=== PATIENT | female | born 2000 | race Caucasian/White ===

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

== ENCOUNTER 2019-01-22 19:12 | Emergency (ER) | payer BC ==
[2019-01-22] MEDS ORDERED: 0.9 % SODIUM CHLORIDE 1,000 ML BAG IV ONE (19:13)
[2019-01-22] MEDS ORDERED: ACETAMINOPHEN 1,000 MG/100 ML BTL IVPB ONE (19:14)
--- NOTE | 2019-01-22 19:19 | Emergency Department Record ---
History of Present Illness - General Chief complaint: OB/Uterine Contract/ Stated complaint: CONTRACTIONS EVERY 2 MINUTES Time Seen by Provider: 01/22/19 19:13 Source: Patient Mode of Arrival: Ambulatory Limitations: No limitations - History of Present Illness Initial comments: 18 yo female presents with abdominal pain. She is 35 weeks . This is her third . Her other pregnancies went to term. She had pain after sex last night. She developed pain every two minutes this evening. She is feeling the baby move. No gush of fluids. No fluids leaking. No urge to push. She had slight bloody mucous last night after sex. Her OB is Dr Mirate. WASSERMAN Complaint: Abdominal pain, "Contractions" -: Hour(s) Location: Abdomen Radiation: Other Severity: Severe Quality: Aching Consistency: Intermittent Improves with: None Worsens with: None Associated symptoms: Denies other symptoms Vaginal bleeding: Light, Other No complications No complications - Related Data Allergies Allergy/AdvReac Type Severity Reaction Status Date / Time No Known Drug Allergies Allergy Verified 08/11/18 08:11 Review of Systems Constitutional: Denies: Chills, Fever, Malaise, Weakness Eyes: Denies: Eye discharge ENT: Denies: Congestion, Throat pain Respiratory: Denies: Cough Cardiovascular: Denies: Chest pain, Palpitations, Syncope Endocrine: Denies: Fatigue Gastrointestinal: Denies: Abdominal pain, Diarrhea, Nausea, Vomiting Genitourinary: Reports: Abnormal menses Musculoskeletal: Denies: Arthralgia, Back pain, Myalgia Skin: Denies: Bruising, Change in color, Rash Neurological: Denies: Headache Psychiatric: Denies: Anxiety Hematological/Lymphatic: Denies: Easy bleeding, Easy bruising Past Medical History - SOCIAL HISTORY Smoking Status: Never smoker Drug Use: None - RESPIRATORY Hx Respiratory Disorders: No - CARDIOVASCULAR Hx Cardio Disorders: No - NEURO Hx Neuro Disorders: No - GI Hx GI Disorders: No - Hx Genitourinary Disorders: No - ENDOCRINE Hx Endocrine Disorders: No - MUSCULOSKELETAL Hx Musculoskeletal Disorders: No - PSYCH Hx Psych Problems: Yes Hx Anxiety: Yes Hx Depression: Yes - HEMATOLOGY/ONCOLOGY Hx Hematology/Oncology Disorders: No Family Medical History Hx Cancer: Grandparents Hx HTN: Brother/Sister Physical Exam - General General Appearance: Alert, Oriented x3, Cooperative, No acute distress Limitations: No limitations - Head Head exam: Atraumatic, Normal inspection - Eye Eye exam: Normal appearance - ENT ENT exam: Normal exam Ear exam: Normal external inspection Nasal Exam: Normal inspection Mouth exam: Normal external inspection - Neck Neck exam: Normal inspection - Respiratory Respiratory exam: Normal lung sounds bilaterally. negative: Respiratory distress - Cardiovascular Cardiovascular Exam: Tachycardia - GI/Abdominal GI/Abdominal exam: Soft, Other (Graivd, non tender) - exam: Other (Sterile exam about 6cm dilated) - Extremities Extremities exam: Normal inspection - Back Back exam: Reports: Normal inspection - Neurological Neurological exam: Alert, Oriented X3 - Psychiatric Psychiatric exam: Normal affect, Normal mood - Skin Skin exam: Dry, Intact, Normal color, Warm Course - Reevaluation(s) Reevaluation #1: FHT 136 Sterile cervix check. 6cm dilation. No blood. The mother is feeling the baby move I SW Dr Heck of OB Labor and delivery with Dr Jaime. Stat transfer Given she has not ruptured and about 6cm the OB recommends transfer with time prior to delivery. 01/22/19 19:20 01/22/19 19:20 STAT transfer requested with EMS Local EMS is on run and will return [facility] 01/22/19 19:26 01/22/19 19:31 No urge to push. The contractions timing seems not consistent with true labor but this is possible EMS arrived. No loss of fluids or urge to push at transfer Medical Decision Making - Lab Data Result diagrams: 01/22/19 19:13 01/22/19 19:13 Disposition Disposition: Transfer Clinical Impression: Abdominal pain Qualifiers: Weeks of gestation: 35 weeks Qualified Code(s): Z3A.35 - 35 weeks gestation of Disposition: Acute Care Hospital Transfer [place] [facility] [place] Reason For Transfer: 35 weeks abdominal pain Accepting Physician: Addison Time Discussed w/Accepting Physician: 19:23 Condition: (2) Stable Forms: Patient Portal Access Time of Disposition: 19:23 Quality - Quality Measures Quality Measures: N/A - Blood Pressure Screening Does Patient Have Any of the Following: No Blood Pressure Classification: Pre-Hypertensive BP Reading Systolic Measurement: 143 Diastolic Measurement: 89 Screening for High Blood Pressure: < Pre-Hypertensive BP, F/U Documented > [G8950] Pre-Hypertensive Follow-up Interventions: Referral to alternative/primary care provider.
[2019-01-22 19:39] LABS: ABSOLUTE NEUTROPHIL COUNT 10.23; BASO % 0.2 % (0-6); EOS % 0.1 % (0-6); GRAN % 70.5 % (47-80); HEMATOCRIT 37.3 % (35.0-47.0); LYMPH % 20.7 % (16-45); MEAN CELL VOLUME 73.6 fl (81-97); MEAN CORPUSCULAR HEMOGLOBIN 23.7 pg (27-33); MEAN CORPUSCULAR HGB CONC 32.2 g/dl (32-36); MEAN PLATELET VOLUME 12.8 fl (7.4-10.4); MONO % 8.5 % (0-9); RED BLOOD COUNT 5.07 M/uL (3.80-5.40); RED CELL DISTRIBUTION WIDTH 16.8 % (11.5-14.5); WHITE BLOOD COUNT W/O DIFF 14.5 K/uL (4.2-12.2)
[2019-01-22 19:47] LABS: BLOOD UREA NITROGEN 5 mg/dL (6-20); CREATININE 0.7 mg/dL (0.5-0.9)
[2019-01-22 19:48] LABS: TOTAL PROTEIN 7.7 g/dL (6.6-8.7)
[2019-01-22 19:49] LABS: PROTHROMBIN TIME (PATIENT) 9.9 SECONDS (9.5-12.1)
[2019-01-22 19:50] LABS: GLUCOSE,RANDOM 96 mg/dL (74-109)
[2019-01-22 19:53] LABS: ALB/GLOB RATIO 0.9 (1.1-1.8); ALBUMIN 3.7 g/dL (4.0-5.0); ALKALINE PHOSPHATASE 197 U/L (35-104); ALT/SGPT 16 U/L (<33); AST/SGOT 30 U/L (10.0-35.0)
[2019-01-22 19:59] LABS: PLATELET COUNT 192 K/uL (130-400)
== END 2019-01-22 19:30 | disposition short-term general hospital (02) ==
LOC: ER 19:12
DX: O62.9 Abnormality of forces of labor, unspecified (principal); Z3A.35 35 weeks gestation of pregnancy
CPT/HCPCS: 80053; 85025; 85610; 85730; 96374; 99285; J7030

== ENCOUNTER 2019-08-11 14:04 | Emergency (ER) | payer BC, MEDICAID ==
--- NOTE | 2019-08-11 14:35 | Emergency Department Record ---
History of Present Illness - General Chief Complaint: Cough Stated Complaint: COUGH Time Seen by Provider: 08/11/19 14:08 Source: Patient Mode of Arrival: Ambulatory Limitations: No limitations - History of Present Illness Initial Comments: The patient is here due to a cough and congestion for a month. She also has had one episode or loose watery stools today. The patient mainly is here due to requesting a note saying she is not contagious so she can see her kids in foster care. Complaint: Cough, Nasal congestion, Rhinorrhea Onset/Timin -: Month(s) Severity: Moderate Severity scale (1-10): 4 - Related Data Previous Rx's Medication Instructions Recorded Azithromycin [Zithromax] 250 mg PO ASDIR #6 tab 08/11/19 Allergies Allergy/AdvReac Type Severity Reaction Status Date / Time No Known Drug Allergies Allergy Verified 08/11/19 14:15 Travel Screening - Travel/Exposure Within Last 30 Days Have you traveled within the last 30 days?: No - Travel/Exposure Within Last Year Have you traveled outside the [place] in the last year?: No - Additonal Travel Details Have you been exposed to anyone with a communicable illness?: No - Travel Symptoms Symptom Screening: None Review of Systems Constitutional: Reports: Malaise. Denies: Chills, Fever Eyes: Denies: Eye discharge ENT: Reports: Congestion Respiratory: Reports: Cough. Denies: Dyspnea Past Medical History - SOCIAL HISTORY Smoking Status: Current every day smoker Alcohol Use: Rare Drug Use: None - RESPIRATORY Hx Respiratory Disorders: Yes Hx Bronchitis: Yes - CARDIOVASCULAR Hx Cardio Disorders: No - NEURO Hx Neuro Disorders: No - GI Hx GI Disorders: No - Hx Genitourinary Disorders: No - ENDOCRINE Hx Endocrine Disorders: No - MUSCULOSKELETAL Hx Musculoskeletal Disorders: No - PSYCH Hx Psych Problems: Yes Hx Anxiety: Yes Hx Depression: Yes - HEMATOLOGY/ONCOLOGY Hx Hematology/Oncology Disorders: No Family Medical History Any Significant Family History?: Yes Hx Cancer: Grandparents Hx HTN: Brother/Sister Physical Exam - General General Appearance: Alert, Oriented x3, Cooperative, No acute distress - Head Head exam: Atraumatic, Normocephalic - Eye Eye exam: Normal appearance, PERRL - ENT ENT exam: TM's normal bilaterally Throat exam: Normal inspection. negative: Tonsillar erythema, Tonsillar exudate - Neck Neck exam: Normal inspection, Full ROM. negative: Lymphadenopathy, Meningismus, Tenderness - Respiratory Respiratory exam: Normal lung sounds bilaterally. negative: Respiratory distress - Cardiovascular Cardiovascular Exam: Regular rate, Normal rhythm, Normal heart sounds - GI/Abdominal GI/Abdominal exam: Soft, Normal bowel sounds. negative: Tenderness - Extremities Extremities exam: Normal inspection, Full ROM, Normal capillary refill. negative: Tenderness - Neurological Neurological exam: Alert. negative: Motor sensory deficit Course Vital Signs 08/11/19 14:05 Temperature 98.0 F Pulse Rate 92 H Respiratory 18 Rate Blood Pressure 116/69 Pulse Ox 98 - Reevaluation(s) Reevaluation #1: I did apologize to the patient because due to the cough and diarrhea I cannot tell the patient she is not contagious. She is to take the medicines and see her doctor next week if not better. 08/11/19 14:37 Disposition Disposition: Discharge Clinical Impression: URI, acute Condition: (2) Stable Instructions: Cold Symptoms (ED) Additional Instructions: Please take the ZPak as directed and please see your doctor next week if not better. Return to the ER for any worsening symptoms, pain, fever, or worsening diarrhea. Prescriptions: Azithromycin [Zithromax] 250 mg PO ASDIR #6 tab Forms: Patient Portal Access Time of Disposition: 14:35 Quality - Quality Measures Quality Measures: N/A - Blood Pressure Screening View Details: Yes Does Patient Have Any of the Following: No Blood Pressure Classification: Normal BP Reading Systolic Measurement: 116 Diastolic Measurement: 69 Screening for High Blood Pressure: < Normal BP, F/U Not Required > [G8783]
== END 2019-08-11 14:43 | disposition home or self-care (01) ==
LOC: ER 14:04
DX: J06.9 Acute upper respiratory infection, unspecified (principal); R05 Cough; R19.7 Diarrhea, unspecified; F17.210 Nicotine dependence, cigarettes, uncomplicated
CPT/HCPCS: 99283